=== PATIENT | male | born 1945 | race Caucasian/White ===

== ENCOUNTER 2017-04-05 12:01 | Emergency (ER) | payer MEDICARE, MEDICAID ==
[~2017-04-05] VITALS: Ht 167.6 cm; Wt 64.0 kg
[2017-04-05] MEDS ORDERED: MORPHINE SULFATE 4 MG/ML, 1ML IVPush PRN (13:00)
[2017-04-05] MEDS ORDERED: ONDANSETRON 2MG/ML, 2ML IVPush ONE (13:00)
[2017-04-05] MEDS ORDERED: SODIUM CHLORIDE FLUSH 10ML SYR IVF ONE (13:00)
[2017-04-05] MEDS ORDERED: ONDANSETRON 2MG/ML, 2ML ONE (13:02)
[2017-04-05] MEDS ORDERED: morphine SULFATE 10 MG/ML, 1ML ONE (13:02)
[2017-04-05 13:35] LABS: ASPARTATE AMINO TRANSFERASE 29 U/L (15-37); BLOOD UREA NITROGEN 11 mg/dL (7-18)
[2017-04-05] MEDS ORDERED: OMNIPAQUE 350 MG/ML, 100ML BOTTLE ONE (14:12)
[2017-04-05 14:20] LABS: HEMATOCRIT 39.5 % (39.2-51.8); HEMOGLOBIN 12.9 g/dL (13.7-18.0); WHITE BLOOD COUNT 8.2 x10^3/uL (3.4-10)
[2017-04-05 14:24] LABS: ANISOCYTOSIS 1+
[2017-04-05 14:25] LABS: LARGE PLATELETS 1+; OVALOCYTES 1+
[2017-04-05 15:53] VITALS: BP 102/60
[2017-04-05] MEDS ORDERED: LIDOCAINE 2%, 20ML ONE (15:56)
[2017-04-05 17:58] LABS: CELLS COUNTED 20; DILUTION 1; WBC SQUARES COUNTED 1
== END 2017-04-05 18:39 | disposition home or self-care (01) ==
LOC: ED 13:47
DX: K74.4 Secondary biliary cirrhosis (principal); E11.9 Type 2 diabetes mellitus without complications; M19.90 Unspecified osteoarthritis, unspecified site; F17.200 Nicotine dependence, unspecified, uncomplicated; Z85.46 Personal history of malignant neoplasm of prostate; Z93.3 Colostomy status
CPT/HCPCS: 36415; 49083; 74177; 80053; 82042; 83615; 83690; 85025; 85610; 85730; 87070; 87205; 89051; 93005; 96374; 96375; 99285; J2405; J3490; Q9967

== ENCOUNTER 2017-05-03 14:51 | Inpatient (IN) | payer MEDICARE, MEDICAID ==
[~2017-05-03] VITALS: Ht 167.6 cm; Wt 67.6 kg
[2017-05-03] MEDS ORDERED: SODIUM CHLORIDE 0.9% 1,000ML IVBOLUS ONE (16:00)
[2017-05-03] MEDS ORDERED: SODIUM CHLORIDE FLUSH 10ML SYR IVF ONE (16:00)
[2017-05-03 16:21] LABS: BASOPHILS # (AUTO) 0.02 x10^3/uL (0-0.1); BASOPHILS % (AUTO) 0 % (0-1); EOSINOPHILS % (AUTO) 0 % (1-7); LYMPHOCYTES # (AUTO) 0.76 x10^3/uL (1-3.4); LYMPHOCYTES % (AUTO) 6 % (22-44); MD NO; MEAN CORPUSCULAR HEMOGLOBIN 32.3 pg (27.5-34.5); MEAN CORPUSCULAR HGB CONC 33.1 g/dL (33.2-36.2); MEAN CORPUSCULAR VOLUME 97.5 fL (81-97); MEAN PLATELET VOLUME 8.8 fL (7.4-10.4); MONOCYTES # (AUTO) 0.55 x10^3/uL (0.2-0.8); MONOCYTES % (AUTO) 4 % (2-9); NEUTROPHILS # (AUTO) 12.13 x10^3/uL (1.8-6.8); NEUTROPHILS % (AUTO) 90 % (42-75); PLATELET COUNT 142 x10^3/uL (130-400); RED BLOOD COUNT 3.62 x10^6/uL (4.38-5.82); RED CELL DISTRIBUTION WIDTH 16.9 % (9.4-14.8)
[2017-05-03 16:34] LABS: ALANINE AMINOTRANSFERASE 102 U/L (12-78); ALBUMIN 1.9 g/dL (3.4-5.0); ANION GAP 9 mmol/L (5-15); CALCIUM 8.4 mg/dL (8.5-10.1); CHLORIDE 109 mmol/L (98-107); CREATININE 1.06 mg/dL (0.7-1.3)
[2017-05-03 16:38] LABS: ALKALINE PHOSPHATASE 226 U/L (45-117); BILIRUBIN,TOTAL 2.9 mg/dL (0.2-1.0); TOTAL PROTEIN 5.9 g/dL (6.4-8.2)
[2017-05-03 16:40] LABS: ACETAMINOPHEN < 2 mcg/mL (10-30); SALICYLATE LEVEL < 1.7 mg/dL (2.8-20.0)
[2017-05-03] MEDS ORDERED: ZIPRASIDONE 20 MG INJ IM ONE ×2 (17:00→17:03)
[2017-05-03 17:24] LABS: CULTURE INDICATED? YES; MICROSCOPIC INDICATED
[2017-05-03 17:40] LABS: AMPHETAMINE SCREEN, URINE Positive (Negative); BARBITURATE SCREEN, URINE Negative (Negative); BENZODIAZEPINE SCREEN, URINE Negative (Negative); CANNABINOID SCREEN, URINE Positive (Negative); COCAINE SCREEN, URINE Negative (Negative); METHADONE SCREEN, URINE Negative (Negative); OPIATE SCREEN, URINE Negative (Negative)
[2017-05-03] MEDS ORDERED: CEFTRIAXONE PMX 1GM/50ML 50 ML IV ONE (19:00)
[2017-05-03] MEDS ORDERED: CEFTRIAXONE PMX 1GM/50ML 50 ML ONE (19:04)
[2017-05-03] MEDS ORDERED: ONDANSETRON 2MG/ML, 2ML IVPush PRN (20:00)
[2017-05-03 21:01] LABS: TROPONIN I < 0.015 ng/mL (0.000-0.045)
[2017-05-03] MEDS: RIFAXIMIN 550 MG TABLET PO SCH (22:15)
[2017-05-03] MEDS: LACTULOSE 20 GM/30 ML UDC PO SCH (22:15)
[2017-05-03] MEDS: LACTATED RINGERS 1,000 ML IV SCH (22:16)
[2017-05-04 02:07] VITALS: BP 105/69
[2017-05-04 02:22] LABS: ALANINE AMINOTRANSFERASE 111 U/L (12-78); ALBUMIN 1.8 g/dL (3.4-5.0); ANION GAP 7 mmol/L (5-15); CALCIUM 8.2 mg/dL (8.5-10.1); CHLORIDE 109 mmol/L (98-107)
[2017-05-04 02:25] LABS: TROPONIN I < 0.015 ng/mL (0.000-0.045)
[2017-05-04 02:33] LABS: ALKALINE PHOSPHATASE 210 U/L (45-117); BASOPHILS # (AUTO) 0.03 x10^3/uL (0-0.1); BASOPHILS % (AUTO) 0 % (0-1); BILIRUBIN,TOTAL 2.7 mg/dL (0.2-1.0); CREATININE 0.95 mg/dL (0.7-1.3); EOSINOPHILS # (AUTO) 0.01 x10^3/uL (0-0.4); EOSINOPHILS % (AUTO) 0 % (1-7); LYMPHOCYTES # (AUTO) 0.68 x10^3/uL (1-3.4); LYMPHOCYTES % (AUTO) 8 % (22-44); MD NO; MEAN CORPUSCULAR VOLUME 97.1 fL (81-97); MEAN PLATELET VOLUME 8.8 fL (7.4-10.4); MONOCYTES % (AUTO) 6 % (2-9); NEUTROPHILS # (AUTO) 7.39 x10^3/uL (1.8-6.8); NEUTROPHILS % (AUTO) 86 % (42-75); PLATELET COUNT 105 x10^3/uL (130-400); RED BLOOD COUNT 3.52 x10^6/uL (4.38-5.82); RED CELL DISTRIBUTION WIDTH 17.7 % (9.4-14.8); TOTAL PROTEIN 5.6 g/dL (6.4-8.2)
[2017-05-04] MEDS: LACTATED RINGERS 1,000 ML IV SCH ×3 (06:02→16:52)
[2017-05-04] MEDS: LACTULOSE 20 GM/30 ML UDC PO SCH ×2 (07:17→16:00)
[2017-05-04] MEDS: RIFAXIMIN 550 MG TABLET PO SCH (07:17)
[2017-05-04] MEDS ORDERED: ENOXAPARIN 30 MG/0.3 ML SQ SCH (09:00)
[2017-05-04] MEDS ORDERED: ENOXAPARIN 40 MG/0.4 ML SQ SCH (09:00)
[2017-05-04] MEDS ORDERED: LIDOCAINE 1%, 10ML ONE (12:48)
[2017-05-04] MEDS ORDERED: morphine SULFATE 125 MG in SODIUM CHLORIDE 0.9% 237.5 ML IV PRN (15:04)
[2017-05-04] MEDS ORDERED: MORPHINE SULFATE 4 MG/ML, 1ML IVPush PRN ×2 (15:30)
[2017-05-04] MEDS ORDERED: LORazepam 2 MG/ML, 1ML IVPush PRN (15:30)
[2017-05-05] MEDS: morphine SULFATE ORAL.CONC 20 MG/ML SL PRN (10:20)
[2017-05-06] MEDS: morphine SULFATE ORAL.CONC 20 MG/ML SL PRN ×2 (04:42→12:31)
[2017-05-06] MEDS ORDERED: KETOROLAC 30 MG/1 ML IVPush SCH (13:00)
[2017-05-08] MEDS: morphine SULFATE ORAL.CONC 20 MG/ML SL PRN (11:22)
[2017-05-09 12:52] VITALS: BP 107/63
[2017-05-09 13:47] LABS: INTERNATIONAL NORMALIZED RATIO 1.31 (0.93-1.1); PROTHROMBIN TIME 13.6 Seconds (9.6-11.5)
[2017-05-09] MEDS ORDERED: LIDOCAINE 2%, 20ML ONE (14:16)
[2017-05-09 19:11] VITALS: BP 99/61
[2017-05-10 03:25] VITALS: BP 103/64
[2017-05-10 07:10] VITALS: BP 97/59
[2017-05-10] MEDS ORDERED: KETOROLAC 30 MG/1 ML IVPush PRN (11:30)
[2017-05-10 13:56] VITALS: BP 99/62
[2017-05-10 19:23] VITALS: BP 105/71
[2017-05-11 02:14] VITALS: BP 92/57
[2017-05-11 07:30] VITALS: BP 93/57
[2017-05-11 13:25] VITALS: BP 95/58
[2017-05-11 18:37] VITALS: BP 95/62
[2017-05-11] MEDS ORDERED: IBUPROFEN 200 MG TABLET ONE (20:26)
[2017-05-11] MEDS ORDERED: IBUPROFEN 200 MG TABLET PO ONE (20:30)
[2017-05-12 02:12] VITALS: BP 95/57
[2017-05-12 06:15] LABS: CLOSTRIDIUM DIFFICILE ANTIGEN POSITIVE; CLOSTRIDIUM DIFFICILE TOXIN NEGATIVE (Negative)
[2017-05-12 07:16] VITALS: BP 94/60
[2017-05-12] MEDS ORDERED: LORazepam 1MG TABLET PO PRN (09:00)
[2017-05-12] MEDS: morphine SULFATE ORAL.CONC 20 MG/ML PO PRN ×3 (10:28→20:02)
[2017-05-12 13:44] VITALS: BP 99/67
[2017-05-12 18:59] VITALS: BP 109/69
[2017-05-13 01:28] VITALS: BP 94/54
[2017-05-13] MEDS: morphine SULFATE ORAL.CONC 20 MG/ML PO PRN ×2 (03:16→09:21)
[2017-05-13 07:39] VITALS: BP 99/62
[2017-05-13] MEDS: ONDANSETRON ODT 4 MG PO PRN ×2 (09:43→17:02)
[2017-05-13] MEDS ORDERED: morphine SULFATE ORAL.CONC 20 MG/ML PO PRN ×2 (16:00→18:00)
[2017-05-13] MEDS ORDERED: LORazepam 2 MG/ML, 1ML IVPush PRN (18:00)
[2017-05-13] MEDS ORDERED: LORazepam 1MG TABLET PO PRN (18:00)
[2017-05-13 20:21] VITALS: BP 116/63
== END 2017-05-14 10:30 | disposition expired | DRG 441 ==
LOC: ED 18:48 → EDIP 18:49 → ED 18:58 → 3NE 19:40 → 3NW 05-05 12:16
PROVIDERS: ADMIT Hospitalist; ATTEND Internal Medicine
PROC: 0W9G3ZZ Drainage of Peritoneal Cavity, Percutaneous Approach (ICD-10-PCS; principal; 2017-05-09)
DX: K72.90 Hepatic failure, unspecified without coma (principal); G92 Toxic encephalopathy; E43 Unspecified severe protein-calorie malnutrition; E87.2 Acidosis; R18.8 Other ascites; D63.8 Anemia in other chronic diseases classified elsewhere; N39.0 Urinary tract infection, site not specified; K74.60 Unspecified cirrhosis of liver; B96.20 Unspecified Escherichia coli [E. coli] as the cause of diseases classified elsewhere; Z51.5 Encounter for palliative care; Z66 Do not resuscitate; R45.4 Irritability and anger; R74.0 Nonspecific elevation of levels of transaminase and lactic acid dehydrogenase [LDH]; Z53.29 Procedure and treatment not carried out because of patient's decision for other reasons; Z68.24 Body mass index [BMI] 24.0-24.9, adult
CPT/HCPCS: 36415; 49083; 70450; 71010; 74176; 80053; 80307; 80329; 81001; 82140; 83605; 83690; 83735; 84443; 84484; 85025; 85610; 87040; 87077; 87086; 87186; 87324; 93005; 96365; 96372; J0696; J2270; J3486; J3490; Q0162; G0479; G0480; J2060; J7030; J7120